=== PATIENT | male | born 1990 | race Caucasian/White ===

== ENCOUNTER 2021-06-18 11:25 | Emergency (ER) | payer BC ==
[~2021-06-18] VITALS: Ht 193 cm; Wt 118.2 kg
[2021-06-18 11:53] VITALS: TEMP 98.5
[2021-06-18 12:56] VITALS: BP 127/81; PULSE 79
== END 2021-06-18 13:06 | disposition home or self-care (01) ==
LOC: COL.ER 11:25
DX: R22.42 Localized swelling, mass and lump, left lower limb (principal); M25.532 Pain in left wrist
CPT/HCPCS: J1885